=== PATIENT | female | born 1935 | race Caucasian/White ===

== ENCOUNTER → 2016-07-28 | Outpatient (CLI) | payer OTHER ==
[~2016-07-28] MED LIST: ATIVAN1 MG PO; ATIVAN2 MG PO; PROAIR HFA8.5 GM IH; TRAZODONE HCL50 MG PO; ZOLOFT25 MG
== END | disposition home or self-care (01) ==
LOC: EKG 10:41
DX: I51.7 Cardiomegaly (principal); I34.0 Nonrheumatic mitral (valve) insufficiency; I07.1 Rheumatic tricuspid insufficiency; I70.0 Atherosclerosis of aorta; R01.1 Cardiac murmur, unspecified
CPT/HCPCS: 93306